=== PATIENT | female | born 2005 | race African-American/Black ===

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

== ENCOUNTER 2024-02-02 18:11 | Emergency (ER) | payer OTHER ==
[2024-02-02 18:40] LABS: Bilirubin Negative (Negative); Blood, Urine Large (Negative); Clarity Slightly Cloudy (Clear); Glucose, Urine (Dipstick) Negative (Negative); Ketone, Urine Negative (Negative); Leukocyte Trace (Negative); Nitrite Negative (Negative); Protein, Urine (Dipstick) 100 mg/dL (Neg-Trace); Specific Gravity, Urine 1.025 (1.005-1.030); Urobilinogen 0.2 mg/dL (Less than 2); pH, Urine 7.5 (5.0-9.0)
[2024-02-02] MEDS ORDERED: Cephalexin 500 MG CAP ONE (18:42)
[2024-02-02] MEDS ORDERED: Ibuprofen 200 MG TAB ONE (18:42)
[2024-02-02 18:48] LABS: Bacteria/HPF 1+ HPF (None Seen); CAUTI Indications for Culture Dysuria,urgency,freq; Squamous Epithelial 0-3 HPF (0-3); WBC/HPF Greater Than 50 HPF (0-3)
[2024-02-02 18:49] LABS: Urine Culture Reflex Yes Yes
== END 2024-02-02 19:05 | disposition home or self-care (01) ==
LOC: MADERS 18:11
DX: N39.0 Urinary tract infection, site not specified (principal); R31.9 Hematuria, unspecified
CPT/HCPCS: 81001; 87077; 87086; 99283